=== PATIENT | female | born 1970 | race Caucasian/White ===

== ENCOUNTER → 2017-04-17 | Outpatient (CLI) | payer OTHER ==
[~2017-04-17] MED LIST: ASPIRIN325; CRESTOR20 MG; GEMFIBROZIL; GLUCOPHAGE500 MG; MULTIVITAMINS; SERTRALINE HCL25 M1; VITAMINC500
== END ==
LOC: MRI 07:08
DX: M51.27 Other intervertebral disc displacement, lumbosacral region (principal); M54.16 Radiculopathy, lumbar region; M47.26 Other spondylosis with radiculopathy, lumbar region